=== PATIENT | female | born 1950 | race Caucasian/White ===

== ENCOUNTER 2016-11-07 12:07 | Observation (INO) | payer BC ==
--- NOTE | ~2016-11-07 | HP ---
History And Physical [place] [id number] [facility] [place]. [address] NAME: IZA ALFARO : 52 STATUS : ADM Dyan PAT#: [id number] AGE: 65 ADM/REG DATE : 11/07/16 MR#: [id number] REPORT SERV DATE: 11/07/16 DICTATED BY: RENO GONZALES DATE: 11/07/16 REPORT STATUS : Draft TRANSCRIBED BY: MODAlison DATE: 11/07/16 DATE OF ADMISSION: 11/07/2016 CHIEF COMPLAINT: Uncontrolled blood pressure. HISTORY OF PRESENT ILLNESS: This is a 65-year-old female with a past medical history of mast cell disease, being followed by Dr. Haley, , and primary care, Dr. Suzy Hernandez, in [place]. Also, history of hypertension, hyperlipidemia, being followed by Dr. Marques, cap and stud machine operator, as an outpatient. The patient was initiated on Maxzide and losartan by Dr. Marques for hypertension. The patient has been keeping a log of her blood pressure and states that blood pressure has been running stable after initiating of those medications. However, the patient went out to a restaurant and ate at [employer] with family and then later began to have spikes in blood pressure as high as 180/100. The patient called her primary care physician and called Dr. Marques, her cap and stud machine operator, and Dr. Marques recommended for the patient to come in to the ER for management. The patient was seen by ER physician, Dr. Weaver. Upon arrival to the hospital, blood pressure was 192/106 and spiked up to little bit over 200s. She was given a nitro paste by ER, also Dr. Marques was called by ER physician and Dr. Marques recommended for the patient to be admitted to the Hospitalist Service. The patient denies any chest pain. Does have intermittent dyspnea on exertion which is mild. She states she has chronic epigastric abdominal discomfort secondary to her mast cell disease. No nausea or vomiting. No subjective fever or chills. No cough. No neuro focal deficits. REVIEW OF SYSTEMS: Please refer to HPI. PAST MEDICAL HISTORY: Hypertension, GERD, hyperlipidemia, hypothyroidism, anxiety, mast cell disease, chronic left bundle branch block. PAST SURGICAL HISTORY: Tonsillectomy, cholecystectomy, appendectomy, hysterectomy. FAMILY HISTORY: Type 2 diabetes and hypertension. SOCIAL HISTORY: No tobacco, alcohol, or illicit drugs. She is currently retired, very mobile. ALLERGIES: TO PENICILLIN, SULFA, CODEINE, ASPIRIN, RANITIDINE, PEANUT, STRAWBERRY SPINACH. PLEASE REFER TO LIST. HOME MEDICATIONS: Xanax 0.25 mg p.o. q.h.s. and 0.125 mg p.o. q.a.m. and 0.125 mg p.o. daily p.r.n., Invokana 100 mg p.o. daily p.r.n., Benadryl 25 mg p.o. q.h.s. and p.r.n., EpiPen p.r.n., Pepcid 20 mg p.o. with breakfast and supper, Flonase one spray in each nostril p.r.n., Cozaar 50 mg p.o. b.i.d., metformin 250 mg p.o. b.i.d., Phenergan 6.25 mg p.o. daily p.r.n., AcipHex 20 mg p.o. q. lunch, Crestor 20 mg p.o. q.h.s., [place] Thyroid 30 mg p.o. q.a.m., Maxzide 37.5/25 one tab p.o. q.a.m. History And Physical [address] [address] NAME: IZA ALFARO : 52 STATUS : ADM Dyan PAT#: [id number] AGE: 65 ADM/REG DATE : 11/07/16 MR#: [id number] REPORT SERV DATE: 11/07/16 DICTATED BY: RENO GONZALES DATE: 11/07/16 REPORT STATUS : Draft TRANSCRIBED BY: MODAlison DATE: 11/07/16 PHYSICAL EXAMINATION: VITAL SIGNS: Temp 98.1, blood pressure 185/104, pulse of 93, respirations of 17, saturating 96% on room air. GENERAL: The patient is alert and oriented x3. Mild obesity. Pleasant, alert, and oriented, but no distress. HEENT: Pupils are equal, round, and reactive to light. Extraocular muscles are intact. Moist mucous membranes. CARDIOVASCULAR: S1, S2. Regular rate and rhythm. No murmurs, rubs, or gallops. No JVD. RESPIRATORY: Clear to auscultation bilaterally. No wheezes. No crackles. No signs of tachypnea. ABDOMEN: Positive bowel sounds. Soft. No abdominal distention. No rebound. EXTREMITIES: 2+ pulse bilaterally. No edema. NEURO: Cranial nerves II through XII grossly intact. Moves all four extremities. No neuro focal deficits. LABORATORY DATA: EKG with left bundle branch block. Some Q-waves. Sodium 138, potassium 4.1, chloride 102, bicarb of 27, BUN of 14, creatinine of 0.99, with a glucose of 154, calcium of 9.5 with a magnesium of 1.9. Troponin less than 0.02. TSH is 3.4. White count of 8.9, with a hemoglobin of 14, platelet count 313. INR of 1. ASSESSMENT AND PLAN: 1. Hypertensive urgency. 2. Chronic left bundle branch block. 3. Hypothyroidism. 4. Chronic mast cell disease. 5. We will admit under observation, and for blood pressure control, we will closely monitor and initiate an additional blood pressure medication. Dr. Marques has already been notified by the ER physician as well. [facility]/MODL Reno Gonzales M.D. / [id number] CC: MD Angelo Mcclelland M.D.
--- NOTE | ~2016-11-07 | DS ---
Discharge Summary [facility] [address] [place]. [address] NAME: IZA ALFARO : 52 STATUS : DIS Dyan PAT#: [id number] AGE: 65 ADM/REG DATE : 11/07/16 MR#: [id number] REPORT SERV DATE: 11/09/16 DICTATED BY: SARAH MAZARIEGOS DATE: 11/08/16 REPORT STATUS : Draft TRANSCRIBED BY: MODL DATE: 11/08/16 ADMISSION DATE: 11/07/2016 DISCHARGE DATE: 11/08/2016 DISCHARGE DIAGNOSES: 1. Hypertensive urgency, resolved. 2. Chronic left bundle branch block. 3. Hypothyroidism. 4. Diabetes mellitus type 2. CONSULTATION: Cardiology, Dr. Angelo Marques M.D., on 11/08/2016. IMAGING STUDIES: Chest x-ray on 11/07/2016. Impression: No acute cardiopulmonary abnormality. HOSPITAL COURSE: Please refer to history and physical dictated by Dr. Perez on 10/30/2016 for complete admission details. This patient is a 65-year-old female, who presented in [facility] Emergency Room with complaints of uncontrolled blood pressure stating at the time of admission the blood pressure was 180/101. The patient was evaluated and admitted under observation. 1. Hypertensive urgency: The patient's blood pressure noted in the emergency room was 192/106. The patient was provided with nitroglycerin paste by an emergency room physician. Dr. Marques was consulted. The patient per Dr. Marques. Recommendation, patient was admitted under observation. The patient was started on hydralazine 25 mg one p.o. every eight hours in addition to her home medications. The patient's blood pressure has been monitored for the past 24 hours. At this time, blood pressure is 155/72. The patient has been ambulating the unit without difficulty. Blood pressure has been monitored during that time. 2. Chronic left bundle branch block: The patient again is followed by Dr. Marques as an outpatient. She will follow up with Dr. Marques on 11/09/2016. 3. Hypothyroidism: The patient will continue her home medications upon discharge. No medication changes noted. 4. Diabetes mellitus type 2: Blood sugar has remained stable. The patient will continue metformin upon discharge. At this time, blood sugar is 117. DISCHARGE PLANNING: The patient is being discharged home in hemodynamically stable condition. Blood pressure is stable. She will follow up with Dr. Marques's PA on 11/09/2016 for further discussion of plan of care. DISCHARGE MEDICATIONS: 1. Xanax 0.251 p.o. at bedtime. 2. Xanax 0.125 mg p.o. every morning. 3. Xanax 0.125 p.o. p.r.n. for anxiety. 4. Benadryl 25 mg one p.o. at bedtime. 5. Benadryl 25 mg p.o. p.r.n. for itching. Discharge Summary [place] [id number] [facility] [place]. [address] NAME: IZA ALFARO : 52 STATUS : DIS Dyan PAT#: [id number] AGE: 65 ADM/REG DATE : 11/07/16 MR#: [id number] REPORT SERV DATE: 11/09/16 DICTATED BY: SARAH MAZARIEGOS DATE: 11/08/16 REPORT STATUS : Draft TRANSCRIBED BY: ROSY DATE: 11/08/16 6. Pepcid 20 mg one p.o. before breakfast and supper. 7. Cozaar 50 mg one p.o. twice daily. 8. AcipHex 20 mg one p.o. at lunch. 9. [place] Thyroid 30 mg one p.o. before breakfast. 10.Triamterene/HCTZ 37.5/25 one p.o. every morning. 11.Hydralazine 25 mg one p.o. every eight hours. 12.Phenergan 25 mg, 6.25 mg p.o. daily p.r.n. for nausea. 13.Metformin 250 mg p.o. twice daily. 14.Epinephrine 0.3 mg autoinjector p.r.n. for anaphylactic reaction. 15.Crestor 20 mg one p.o. at bedtime. 16.Flonase nasal spray 50 mcg inhaler one spray daily p.r.n. for seasonal allergies. This discharge took less than 30 minutes. ALEA/ROSY Sarah Mazariegos NP / [id number] CC: MD Suzy Pimentel MD
[2016-11-07 11:53] LABS: BASOPHILS 0.5 %; BASOPHILS ABSOLUTE 0.04 10/3/uL (0.0-0.16); EOSINOPHILS 2.5 %; EOSINOPHILS ABSOLUTE 0.22 10/3/uL (0.0-0.53); ER CBC TAT 0 Hrs 03 Mins; IMMATURE GRANULOCYTES 0.2 %; IMMATURE GRANULOCYTES ABSOLUTE 0.02 10/3/uL (0.0-0.11); LYMPHOCYTES 17.6 %; LYMPHOCYTES ABSOLUTE 1.56 10/3/uL (0.67-4.30); MEAN CORPUSCULAR HEMOGLOB 29.5 pg (26.0-34.0); MEAN CORPUSCULAR VOLUME 86.7 fL (80-100); MONOCYTES 6.1 %; MONOCYTES ABSOLUTE 0.54 10/3/uL (0.21-1.20); NEUTROPHILS 73.1 %; PLATELET COUNT 313 10/3/uL (150-400); RBC DISTRIBUTION WIDTH 13.7 % (12.0-16.0); RED CELL COUNT 4.75 10/6/uL (4.0-5.6); WHITE BLOOD CELLS 8.9 10/3/uL (4.5-10.5)
[2016-11-07 11:54] LABS: HEMATOCRIT 41.2 % (36.0-48.0); MANUAL DIFF NO %
[2016-11-07 12:00] LABS: PARTIAL THROMBO TIME 27.6 SEC (22.5-37.2); PROTIME (NOT ORD) 13.5 SEC (12.0-14.5)
[~2016-11-07 12:07] MED LIST: ARMOUR THYRO30 MG PO; BRILINTA90 MG PO; CRESTOR20 MG PO; DRAMAMINE25 MG PO; ESTRACE0.5 MG PO; EXFORGE1 TA3 PO; ONGLYZA2.5 MG PO; PR25 PO; TOPXL25 PO; X25 PO
[2016-11-07 12:14] LABS: BUN (BLOOD UREA NITROGEN) 14 MG/DL (6-23); CALCIUM, SERUM 9.5 MG/DL (8.5-10.4); CHEST PAIN PROFILE TAT 0 Hrs 24 Mins; CHLORIDE, SERUM 102 MMOL/L (96-112); CO2 (CARBON DIOXIDE) 27 MMOL/L (24-34); CREATININE 0.99 MG/DL (0.55-1.02); GFR AFRICAN AMERICAN 70 ML/MIN (>=60); GFR NON AFRICAN AMERICAN 60 ML/MIN (>=60); GLUCOSE, SERUM 164 MG/DL (60-99); POTASSIUM, SERUM 4.1 MMOL/L (3.5-5.3); SODIUM, SERUM 138 MMOL/L (135-148); TROPONIN I <0.02 NG/ML (<0.05)
[2016-11-07] MEDS ORDERED: MAX25 PO (13:24)
[2016-11-07] MEDS ORDERED: COZ50 PO (13:25)
[2016-11-07] MEDS ORDERED: PR25 PO (13:25)
[2016-11-07] MEDS ORDERED: X25 PO ×2 (13:26)
[2016-11-07] MEDS ORDERED: PEP20 PO (13:27)
[2016-11-07] MEDS ORDERED: GLUCPH PO (13:27)
[2016-11-07] MEDS ORDERED: X5 PO (13:27)
[2016-11-07] MEDS ORDERED: BEN25 PO (13:28)
[2016-11-07] MEDS ORDERED: EPIPEN0.3 IM (13:29)
[2016-11-07] MEDS ORDERED: ACIPHEX PO (13:29)
[2016-11-07] MEDS ORDERED: CRESTOR20 MG PO (13:30)
[2016-11-07] MEDS ORDERED: ARMOUR THYRO30 MG PO (13:30)
[2016-11-07] MEDS ORDERED: BEN25UDL PO (13:31)
[2016-11-07] MEDS ORDERED: FLONASE NAS (13:32)
[2016-11-07] MEDS ORDERED: INVOKANA100 MG PO (13:34)
[2016-11-08 05:38] LABS: CALCIUM, SERUM 9.2 MG/DL (8.5-10.4); CHLORIDE, SERUM 103 MMOL/L (96-112); CO2 (CARBON DIOXIDE) 27 MMOL/L (24-34); CREATININE 1.09 MG/DL (0.55-1.02); GFR AFRICAN AMERICAN 62 ML/MIN (>=60); GFR NON AFRICAN AMERICAN 54 ML/MIN (>=60); GLUCOSE, SERUM 139 MG/DL (60-99); POTASSIUM, SERUM 4.4 MMOL/L (3.5-5.3); SODIUM, SERUM 139 MMOL/L (135-148); TROPONIN I <0.02 NG/ML (<0.05)
[2016-11-08 05:40] LABS: BUN (BLOOD UREA NITROGEN) 20 MG/DL (6-23); CPK 90 U/L (0-200)
[2016-11-08] MEDS ORDERED: APRES25 PO (17:00)
[2016-11-13] MEDS ORDERED: PLAVIX PO (12:02)
[2016-11-15] MEDS ORDERED: COREG6 PO (10:17)
[2016-11-15] MEDS ORDERED: SACU1TAB4 PO (10:18)
[2016-11-15] MEDS ORDERED: APRES25 PO (12:10)
[2017-03-20] MEDS ORDERED: VITC500 PO (09:27)
[2017-03-20] MEDS ORDERED: VITAMIN D31000 UNIT PO (09:28)
[2017-03-20] MEDS ORDERED: SAMBUCOL PO (09:28)
[2017-04-09] MEDS ORDERED: X25 PO (16:49)
[2017-04-09] MEDS ORDERED: X5 PO (16:50)
[2017-04-09] MEDS ORDERED: GLUCPH PO (16:51)
[2017-04-09] MEDS ORDERED: APRES50 PO (16:53)
[2017-04-09] MEDS ORDERED: CRESTOR20 MG PO (16:53)
[2017-04-09] MEDS ORDERED: COREG6 PO (16:54)
[2017-04-09] MEDS ORDERED: PEP20 PO (16:54)
[2017-04-09] MEDS ORDERED: SACU1TAB4 PO (16:54)
[2017-04-09] MEDS ORDERED: ACIPHEX PO (16:55)
[2017-04-09] MEDS ORDERED: ARMOUR THYRO30 MG PO (16:55)
[2017-04-09] MEDS ORDERED: VITC500 PO (16:56)
[2017-04-09] MEDS ORDERED: VITAMIN D2000 UNIT PO (16:56)
[2017-04-09] MEDS ORDERED: BEN25 PO (16:56)
[2017-04-09] MEDS ORDERED: FLONASE NAS (16:57)
[2017-04-09] MEDS ORDERED: ELDERBERRY PO (16:57)
[2017-04-09] MEDS ORDERED: TEARS PURE OPH (16:57)
[2017-04-10] MEDS ORDERED: NORV5 PO (15:52)
== END 2016-11-08 18:30 | disposition home or self-care (01) ==
LOC: ER 12:07 → CDU1 17:41 → CDU2 18:14
PROVIDERS: Emergency Medicine; Internal Medicine
DX: I16.0 Hypertensive urgency (principal); I44.7 Left bundle-branch block, unspecified; E03.9 Hypothyroidism, unspecified; E11.9 Type 2 diabetes mellitus without complications; I42.8 Other cardiomyopathies; R55 Syncope and collapse; R07.9 Chest pain, unspecified; I25.10 Atherosclerotic heart disease of native coronary artery without angina pectoris; I95.1 Orthostatic hypotension; K21.9 Gastro-esophageal reflux disease without esophagitis; F41.9 Anxiety disorder, unspecified; E78.00 Pure hypercholesterolemia, unspecified; M79.7 Fibromyalgia; K44.9 Diaphragmatic hernia without obstruction or gangrene; Z79.899 Other long term (current) drug therapy; Z79.52 Long term (current) use of systemic steroids; Z88.5 Allergy status to narcotic agent; Z88.2 Allergy status to sulfonamides; Z88.8 Allergy status to other drugs, medicaments and biological substances; Z90.89 Acquired absence of other organs; Z90.49 Acquired absence of other specified parts of digestive tract; Z90.710 Acquired absence of both cervix and uterus; Z83.3 Family history of diabetes mellitus; Z82.49 Family history of ischemic heart disease and other diseases of the circulatory system; Z88.0 Allergy status to penicillin; Z98.890 Other specified postprocedural states
CPT/HCPCS: 71010; 80048; 82550; 82553; 82962; 83735; 83880; 84443; 84484; 85025; 85610; 85730; 93005; 99285; A9270-GY; G0378